=== PATIENT | male | born 1930 | race Caucasian/White ===

== ENCOUNTER 2016-05-08 11:02 | Emergency (ER) | payer OTHER, BC ==
[~2016-05-08] VITALS: Ht 167.6 cm; Wt 94.0 kg
[~2016-05-08 11:02] MED LIST: ALBUTEROL2.5 MG/3 M IH; AMBIZINE25 MG PO; AMIODARONE HCL200 MG PO; ARICEPT10 MG PO; ASPIRIN325 MG PO; CALCITRIOL0.25 MCG PO; CLINDAMYCIN HC300 MG PO; CYMBALTA20 MG PO; DILAUDID2 MG PO; FLOMAX0.4 MG PO; IMODIUM MS REL1 EACH PO; K-DUR20 MEQ PO; LASIX20 MG PO; LEVOFLOXACIN500 MG PO; LYRICA50 MG PO; MELATONIN10 M2 PO; METOPROLOL SUCC25 MG PO; METOPROLOL TART25 MG PO; PREDNISONE5 MG PO; PREDNISONE50 MG PO; PRINIVIL5 MG PO; SLEEP-AID25 MG PO; SPIRIVA RESPIMAT4 GM IH; TYLENOL EXTRA500 MG PO; VALIUM5 MG PO; VENTOLIN HFA18 GM IH; VITAMIN D2000 UNIT PO; XARELTO15 MG PO; ZOFRAN ODT8 MG PO; ZOFRAN4 MG PO
[2016-05-08 14:21] VITALS: BP 131/61
== END 2016-05-08 14:21 | disposition home or self-care (01) ==
LOC: EME 11:02
DX: Z03.89 Encounter for observation for other suspected diseases and conditions ruled out (principal); W18.39XA Other fall on same level, initial encounter; M54.9 Dorsalgia, unspecified; G89.29 Other chronic pain; Z95.0 Presence of cardiac pacemaker; Z79.01 Long term (current) use of anticoagulants; Z87.891 Personal history of nicotine dependence
CPT/HCPCS: 70450; 93005; 99281; 99284

== ENCOUNTER 2016-08-17 09:59 | Inpatient (IN) | payer OTHER, BC ==
[~2016-08-17] VITALS: Ht 167.6 cm; Wt 89.9 kg
[2016-08-17 10:58] LABS: BASOPHIL COUNT 0.1 K/uL (0-0.1); EOSINOPHIL (%) 2.8 % (0-5); EOSINOPHIL COUNT 0.3 K/uL (0-0.3); HEMATOCRIT 44.5 % (38.0-50.0); IMMATURE GRANULOCYTE COUNT 0.1 K/uL; INSTRUMENT ABS NEUTROPHIL CT 6.2 K/uL; LYMPHOCYTE COUNT 1.3 K/uL (1.0-2.8); MCH 31.3 PG (29.0-34.0); MCHC 31.7 G/DL (30.0-36.0); MCV 98.9 FL (86-99); MEAN PLAT.VOLUME 10.9 uM^3 (9.0-12.4); MONOCYTE COUNT 1.2 K/uL (0-0.8); NEUTROPHIL (%) 68.1 % (45-76); NEUTROPHIL COUNT 6.2 K/uL (1.8-6.4); PLATELET COUNT 178 K/uL (156-360); RBC DIS.WIDTH-CV 14.8 % (11.8-14.6); RBC DIS.WIDTH-SD 53.2 % (39-53); WHITE BLOOD COUNT 9.1 K/uL (4.1-10.2)
[2016-08-17 11:06] LABS: CHLORIDE 108 mEq/L (99-109); POTASSIUM 4.5 mEq/L (3.7-5.4); SODIUM 140 mEq/L (136-147)
[2016-08-17 11:07] LABS: INTER. NORMALIZED RATIO 2.3; PROTHROMBIN TIME 23.9 (9.2-11.2); PTT 37.8 (25-32)
[2016-08-17 11:08] LABS: GLUCOSE 98 mg/dL (70-99)
[2016-08-17 11:10] LABS: ANION GAP 8 MEQ/L (2-14)
[2016-08-17 11:12] LABS: GFR ESTIMATE (CALCULATED) 34 mL/min/
[2016-08-17 11:13] LABS: UREA NITROGEN (BUN) 35 mg/dL (9-23)
[2016-08-17 11:18] LABS: TROP-I INTERPRETATION NEGATIVE; TROPONIN-I 0.04 ng/mL (0.0-0.30)
[2016-08-17] MEDS ORDERED: MACULAR VITAMI1 EACH PO (13:35)
[2016-08-17] MEDS ORDERED: COUMADIN2.5 MG PO (13:37)
[2016-08-17] MEDS ORDERED: PROVENTIL,2.5 MG/3 M IH (13:39)
[2016-08-17 22:43] VITALS: BP 134/92
[2016-08-18 04:06] VITALS: BP 112/59
[2016-08-18 09:00] VITALS: BP 125/77
[2016-08-18 09:21] LABS: HEMATOCRIT 44.1 % (38.0-50.0); MCH 31.9 PG (29.0-34.0); MCHC 32.9 G/DL (30.0-36.0); MCV 96.9 FL (86-99); MEAN PLAT.VOLUME 11.7 uM^3 (9.0-12.4); PLATELET COUNT 173 K/uL (156-360); RBC DIS.WIDTH-CV 14.7 % (11.8-14.6); RBC DIS.WIDTH-SD 52.9 % (39-53); RED BLOOD COUNT 4.55 M/uL (4.00-5.50); WHITE BLOOD COUNT 13.6 K/uL (4.1-10.2)
[2016-08-18 09:27] LABS: CHLORIDE 107 mEq/L (99-109); INTER. NORMALIZED RATIO 2.2; POTASSIUM 4.2 mEq/L (3.7-5.4); PROTHROMBIN TIME 22.5 (9.2-11.2); SODIUM 142 mEq/L (136-147)
[2016-08-18 09:29] LABS: GLUCOSE 135 mg/dL (70-99)
[2016-08-18 09:30] LABS: ANION GAP 13 MEQ/L (2-14)
[2016-08-18 09:33] LABS: GFR ESTIMATE (CALCULATED) 30 mL/min/; UREA NITROGEN (BUN) 42 mg/dL (9-23)
[2016-08-18 11:34] VITALS: BP 130/72
[2016-08-18 14:30] VITALS: BP 110/62
[2016-08-18 19:26] VITALS: BP 98/53
[2016-08-19] VITALS (7 sets, daily range): BP systolic 72–115; BP diastolic 52–80
[2016-08-19 06:11] LABS: ANION GAP 14 MEQ/L (2-14); CHLORIDE 98 MEQ/L (99-109); GFR ESTIMATE (CALCULATED) 26 mL/min/; POTASSIUM 3.8 MEQ/L (3.7-5.4); SAMPLE HEMOLYSIS CHECK 0; SAMPLE ICTERIC CHECK 0; SAMPLE LIPEMIA CHECK 0; SODIUM 141 MEQ/L (136-147); UREA NITROGEN (BUN) 53 mg/dL (9-23)
[2016-08-19 06:13] LABS: GLUCOSE 95 mg/dL (70-99)
[2016-08-19 06:41] LABS: INTER. NORMALIZED RATIO 2.2; PROTHROMBIN TIME 23.4 (9.2-11.2)
[2016-08-19 14:49] LABS: ANION GAP 15 MEQ/L (2-14); CHLORIDE 98 MEQ/L (99-109); GFR ESTIMATE (CALCULATED) 25 mL/min/; GLUCOSE 125 mg/dL (70-99); POTASSIUM 4.4 MEQ/L (3.7-5.4); SAMPLE HEMOLYSIS CHECK 1; SAMPLE ICTERIC CHECK 0; SAMPLE LIPEMIA CHECK 0; SODIUM 137 MEQ/L (136-147); UREA NITROGEN (BUN) 58 mg/dL (9-23)
[2016-08-20 00:02] VITALS: BP 98/69
[2016-08-20 03:17] LABS: ADD MIUA? NO; BILIRUBIN NEGATIVE; BLOOD NEGATIVE; COLOR STRAW ((YELLOW)); GLUCOSE (STRIP) NEGATIVE; KETONES NEGATIVE; LEUKOCYTES NEGATIVE; NITRITE NEGATIVE; PROTEIN (STRIP) NEGATIVE; SPECIFIC GRAVITY 1.006 (1.000-1.030); UROBILINOGEN 0.2 MG/DL (0.2-1.0)
[2016-08-20 04:28] VITALS: BP 99/61
[2016-08-20 05:26] LABS: HEMATOCRIT 47.3 % (38.0-50.0); MCH 32.4 PG (29.0-34.0); MCHC 32.8 G/DL (30.0-36.0); MEAN PLAT.VOLUME 11.6 uM^3 (9.0-12.4); PLATELET COUNT 211 K/uL (156-360); RBC DIS.WIDTH-CV 14.6 % (11.8-14.6); RBC DIS.WIDTH-SD 53.4 % (39-53); RED BLOOD COUNT 4.78 M/uL (4.00-5.50); WHITE BLOOD COUNT 9.7 K/uL (4.1-10.2)
[2016-08-20 05:35] LABS: INTER. NORMALIZED RATIO 2.3
[2016-08-20 05:53] LABS: ANION GAP 14 MEQ/L (2-14); CHLORIDE 97 MEQ/L (99-109); GFR ESTIMATE (CALCULATED) 25 mL/min/; GLUCOSE 114 mg/dL (70-99); POTASSIUM 3.8 MEQ/L (3.7-5.4); SAMPLE HEMOLYSIS CHECK 0; SAMPLE ICTERIC CHECK 0; SAMPLE LIPEMIA CHECK 0; SODIUM 137 MEQ/L (136-147); UREA NITROGEN (BUN) 66 mg/dL (9-23)
[2016-08-20 07:33] VITALS: BP 103/70
[2016-08-20] MEDS ORDERED: ASPIR-LOW81 MG PO (10:34)
[2016-08-20] MEDS ORDERED: ENALAPRIL MALE2.5 MG PO (10:35)
[2016-08-20] MEDS ORDERED: METOPROLOL SUCC25 MG PO (10:35)
[2016-08-20] MEDS ORDERED: COUMADIN2.5 MG PO (12:08)
[2016-08-20 14:35] VITALS: BP 104/60
== END 2016-08-20 14:36 | disposition home or self-care (01) | DRG 292 ==
LOC: EME → EDBD 09:59 → 4EAST 14:47 → EDOF 14:47 → 4EAST 22:27
PROVIDERS: Emergency Medicine; Hospitalist; Internal Medicine; Internal Medicine Cardiovascular Disease
DX: I50.23 Acute on chronic systolic (congestive) heart failure (principal); J44.1 Chronic obstructive pulmonary disease with (acute) exacerbation; R09.02 Hypoxemia; I27.2 Other secondary pulmonary hypertension; N18.4 Chronic kidney disease, stage 4 (severe); I13.0 Hypertensive heart and chronic kidney disease with heart failure and stage 1 through stage 4 chronic kidney disease, or unspecified chronic kidney disease; I25.10 Atherosclerotic heart disease of native coronary artery without angina pectoris; G30.9 Alzheimer's disease, unspecified; I48.91 Unspecified atrial fibrillation; I08.3 Combined rheumatic disorders of mitral, aortic and tricuspid valves; K21.9 Gastro-esophageal reflux disease without esophagitis; F02.80 Dementia in other diseases classified elsewhere, unspecified severity, without behavioral disturbance, psychotic disturbance, mood disturbance, and anxiety; T50.1X5A Adverse effect of loop [high-ceiling] diuretics, initial encounter; N40.0 Benign prostatic hyperplasia without lower urinary tract symptoms; Z95.0 Presence of cardiac pacemaker; Z87.891 Personal history of nicotine dependence; Z82.3 Family history of stroke; Z79.899 Other long term (current) drug therapy; Z79.82 Long term (current) use of aspirin; Z79.01 Long term (current) use of anticoagulants; Z68.31 Body mass index [BMI] 31.0-31.9, adult; Z96.651 Presence of right artificial knee joint
CPT/HCPCS: 71010; 80048; 80048 91; 81003; 83880; 84484; 85025; 85027; 85610; 85730; 93005; 94640; 99281; 99285; J1940; J2930

== ENCOUNTER 2016-10-29 18:04 | Emergency (ER) | payer OTHER, BC ==
[~2016-10-29] VITALS: Ht 167.6 cm; Wt 91.0 kg
[~2016-10-29 18:04] MED LIST changes: +ASPIR-LOW81 MG PO; +COUMADIN2.5 MG PO; +ENALAPRIL MALE2.5 MG PO; +MACULAR VITAMI1 EACH PO; +PROVENTIL,2.5 MG/3 M IH
[2016-10-29 19:56] LABS: HEMATOCRIT 42.7 % (38.0-50.0); MCH 31.7 PG (29.0-34.0); MCHC 32.3 G/DL (30.0-36.0); MCV 97.9 FL (86-99); MEAN PLAT.VOLUME 11.4 uM^3 (9.0-12.4); PLATELET COUNT 144 K/uL (156-360); RBC DIS.WIDTH-CV 13.2 % (11.8-14.6); RBC DIS.WIDTH-SD 47.9 % (39-53); RED BLOOD COUNT 4.36 M/uL (4.00-5.50); WHITE BLOOD COUNT 7.7 K/uL (4.1-10.2)
[2016-10-29 20:09] LABS: CHLORIDE 105 mEq/L (99-109); POTASSIUM 5.3 mEq/L (3.7-5.4); SODIUM 137 mEq/L (136-147)
[2016-10-29 20:12] LABS: GLUCOSE 87 mg/dL (70-99)
[2016-10-29 20:13] LABS: ANION GAP 9 MEQ/L (2-14)
[2016-10-29 20:15] LABS: ALKALINE PHOSPHATASE 89 IU/L (3-129); GFR ESTIMATE (CALCULATED) 30 mL/min/
[2016-10-29 20:16] LABS: UREA NITROGEN (BUN) 36 mg/dL (9-23)
[2016-10-29 22:00] VITALS: BP 120/61
== END 2016-10-29 22:02 | disposition home or self-care (01) ==
LOC: EME 18:04
DX: I12.9 Hypertensive chronic kidney disease with stage 1 through stage 4 chronic kidney disease, or unspecified chronic kidney disease (principal); N18.4 Chronic kidney disease, stage 4 (severe); E86.0 Dehydration; F03.90 Unspecified dementia, unspecified severity, without behavioral disturbance, psychotic disturbance, mood disturbance, and anxiety; Z95.0 Presence of cardiac pacemaker; Z87.891 Personal history of nicotine dependence
CPT/HCPCS: 80053; 85027; 93005; 99281; 99284; J7030

== ENCOUNTER 2017-01-20 22:48 | Inpatient (IN) | payer OTHER, BC ==
[~2017-01-20] VITALS: Ht 167.6 cm; Wt 88.9 kg
[~2017-01-20 22:48] MED LIST changes: -CALCITRIOL0.25 MCG PO; -LYRICA50 MG PO; -MACULAR VITAMI1 EACH PO; -PROVENTIL,2.5 MG/3 M IH; -VITAMIN D2000 UNIT PO
[2017-01-20 23:22] LABS: HEMATOCRIT 43.9 % (38.0-50.0); MCH 30.9 PG (29.0-34.0); MCHC 31.9 G/DL (30.0-36.0); MCV 96.9 FL (86-99); MEAN PLAT.VOLUME 10.9 uM^3 (9.0-12.4); PLATELET COUNT 167 K/uL (156-360); RBC DIS.WIDTH-CV 13.9 % (11.8-14.6); RBC DIS.WIDTH-SD 49.7 % (39-53); RED BLOOD COUNT 4.53 M/uL (4.00-5.50); WHITE BLOOD COUNT 8.8 K/uL (4.1-10.2)
[2017-01-20 23:28] LABS: CHLORIDE 107 mEq/L (99-109); POTASSIUM 4.6 mEq/L (3.7-5.4); SODIUM 141 mEq/L (136-147)
[2017-01-20 23:30] LABS: GLUCOSE 107 mg/dL (70-99)
[2017-01-20 23:31] LABS: ANION GAP 12 MEQ/L (2-14)
[2017-01-20 23:34] LABS: GFR ESTIMATE (CALCULATED) 27 mL/min/
[2017-01-20 23:35] LABS: UREA NITROGEN (BUN) 35 mg/dL (9-23)
[2017-01-21 00:08] LABS: TOTAL BILIRUBIN 0.7 mg/dL (0.0-1.0)
[2017-01-21 00:09] LABS: ALKALINE PHOSPHATASE 93 IU/L (3-129)
[2017-01-21 00:11] LABS: DIRECT BILIRUBIN 0.2 mg/dL (0.0-0.3)
[2017-01-21 00:12] LABS: LIPASE 50 U/L (1.0-51.0)
[2017-01-21 00:14] LABS: TROP-I INTERPRETATION NEGATIVE; TROPONIN-I 0.02 ng/mL (0.0-0.30)
[2017-01-21 00:19] LABS: PTT 57.5 SEC (25-37)
[2017-01-21 00:21] LABS: INTER. NORMALIZED RATIO 4.3; PROTHROMBIN TIME 48.7 SEC (10.2-12.9)
[2017-01-21 01:00] LABS: ADD MIUA? NO; BILIRUBIN NEGATIVE; BLOOD NEGATIVE; COLOR YELLOW ((YELLOW)); GLUCOSE (STRIP) NEGATIVE; KETONES NEGATIVE; LEUKOCYTES NEGATIVE; NITRITE NEGATIVE; PROTEIN (STRIP) NEGATIVE; SPECIFIC GRAVITY 1.011 (1.000-1.030); UCUL ADDED? NO; UROBILINOGEN 0.2 MG/DL (0.2-1.0)
[2017-01-21 05:46] VITALS: BP 132/72
[2017-01-21 07:23] LABS: INTER. NORMALIZED RATIO 4.4; PROTHROMBIN TIME 50.6 SEC (10.2-12.9)
[2017-01-21 07:46] VITALS: BP 117/74
[2017-01-21] MEDS ORDERED: MACULAR VITAMI1 EACH PO ×2 (10:44→10:46)
[2017-01-21] MEDS ORDERED: VITAMIN D2000 UNIT PO (10:44)
[2017-01-21] MEDS ORDERED: DILAUDID2 MG PO (10:44)
[2017-01-21] MEDS ORDERED: PROVENTIL,2.5 MG/3 M IH (10:44)
[2017-01-21] MEDS ORDERED: CALCITRIOL0.25 MCG PO (10:44)
[2017-01-21] MEDS ORDERED: LYRICA50 MG PO ×2 (10:44→10:46)
[2017-01-21] MEDS ORDERED: METOPROLOL TART25 MG PO (10:47)
[2017-01-21] MEDS ORDERED: WARFARIN SODIU2.5 MG PO ×2 (10:47→10:48)
[2017-01-21 11:35] VITALS: BP 117/63
[2017-01-21 19:00] VITALS: BP 115/82
[2017-01-21 21:10] LABS: POINT-OF-CARE METER ID UU14174216
[2017-01-22 00:03] VITALS: BP 110/55
[2017-01-22 04:00] VITALS: BP 130/75
[2017-01-22 06:10] LABS: INTER. NORMALIZED RATIO 3.9; PROTHROMBIN TIME 44.8 SEC (10.2-12.9)
[2017-01-22 08:00] VITALS: BP 89/54
[2017-01-22 11:42] VITALS: BP 113/66
[2017-01-22] MEDS ORDERED: FUROSEMIDE40 MG PO (14:33)
== END 2017-01-22 16:18 | disposition home health service (06) | DRG 291 ==
LOC: EME 22:48 → EDOF 01-21 01:51 → 4EAST 01-21 01:51 → ENRESERV 01-21 01:53 → 4EAST 01-21 05:41
PROVIDERS: Emergency Medicine; Internal Medicine
DX: I13.0 Hypertensive heart and chronic kidney disease with heart failure and stage 1 through stage 4 chronic kidney disease, or unspecified chronic kidney disease (principal); I50.43 Acute on chronic combined systolic (congestive) and diastolic (congestive) heart failure; N18.4 Chronic kidney disease, stage 4 (severe); J44.9 Chronic obstructive pulmonary disease, unspecified; I27.20 Pulmonary hypertension, unspecified; I42.9 Cardiomyopathy, unspecified; I08.0 Rheumatic disorders of both mitral and aortic valves; F03.90 Unspecified dementia, unspecified severity, without behavioral disturbance, psychotic disturbance, mood disturbance, and anxiety; I25.10 Atherosclerotic heart disease of native coronary artery without angina pectoris; N40.1 Benign prostatic hyperplasia with lower urinary tract symptoms; R33.8 Other retention of urine; M19.90 Unspecified osteoarthritis, unspecified site; R09.02 Hypoxemia; I44.7 Left bundle-branch block, unspecified; F41.9 Anxiety disorder, unspecified; F32.9 Major depressive disorder, single episode, unspecified; Z87.891 Personal history of nicotine dependence; Z95.0 Presence of cardiac pacemaker; Z96.89 Presence of other specified functional implants; Z96.651 Presence of right artificial knee joint; Z79.01 Long term (current) use of anticoagulants; Z88.0 Allergy status to penicillin
CPT/HCPCS: 71020; 80048; 80076; 81003; 82948; 83690; 83880; 84484; 85027; 85610; 85730; 93005; 94640; 94799; 99202; 99281; 99285; J1940

== ENCOUNTER 2017-02-28 11:30 | Emergency (ER) | payer OTHER, BC ==
[~2017-02-28] VITALS: Ht 45.7 cm; Wt 89.1 kg
[~2017-02-28 11:30] MED LIST changes: +CALCITRIOL0.25 MCG PO; +FUROSEMIDE40 MG PO; +LYRICA50 MG PO; +MACULAR VITAMI1 EACH PO; +PROVENTIL,2.5 MG/3 M IH; +VITAMIN D2000 UNIT PO; +WARFARIN SODIU2.5 MG PO
[2017-02-28 12:35] LABS: BASOPHIL COUNT 0.1 K/uL (0-0.1); EOSINOPHIL (%) 4.4 % (0-5); EOSINOPHIL COUNT 0.4 K/uL (0-0.3); HEMATOCRIT 43.1 % (38.0-50.0); IMMATURE GRANULOCYTE (%) 1.3 % (0.0-0.7); IMMATURE GRANULOCYTE COUNT 0.1 K/uL; INSTRUMENT ABS NEUTROPHIL CT 5.2 K/uL; LYMPHOCYTE COUNT 1.2 K/uL (1.0-2.8); MCH 30.9 PG (29.0-34.0); MCHC 32.5 G/DL (30.0-36.0); MCV 95.1 FL (86-99); MEAN PLAT.VOLUME 11.4 uM^3 (9.0-12.4); MONOCYTE (%) 13.3 % (3-12); MONOCYTE COUNT 1.1 K/uL (0-0.8); NEUTROPHIL (%) 65.3 % (45-76); NEUTROPHIL COUNT 5.2 K/uL (1.8-6.4); PLATELET COUNT 144 K/uL (156-360); RBC DIS.WIDTH-SD 48.8 % (39-53); RED BLOOD COUNT 4.53 M/uL (4.00-5.50); WHITE BLOOD COUNT 7.9 K/uL (4.1-10.2)
[2017-02-28 12:42] LABS: PROTHROMBIN TIME 45.3 SEC (10.2-12.9)
[2017-02-28 12:45] LABS: PTT 51.2 SEC (25-37)
[2017-02-28 12:47] LABS: CHLORIDE 108 mEq/L (99-109); MAGNESIUM 2.1 mg/dL (1.3-2.7); POTASSIUM 4.2 mEq/L (3.7-5.4); SODIUM 143 mEq/L (136-147)
[2017-02-28 12:49] LABS: GLUCOSE 100 mg/dL (70-99)
[2017-02-28 12:50] LABS: ANION GAP 11 MEQ/L (2-14)
[2017-02-28 12:51] LABS: TOTAL BILIRUBIN 0.9 mg/dL (0.0-1.0)
[2017-02-28 12:53] LABS: ALKALINE PHOSPHATASE 85 IU/L (3-129); GFR ESTIMATE (CALCULATED) 30 mL/min/ (58.99-99999)
[2017-02-28 12:54] LABS: UREA NITROGEN (BUN) 44 mg/dL (9-23)
[2017-02-28 12:55] LABS: TROP-I INTERPRETATION NEGATIVE; TROPONIN-I 0.03 ng/mL (0.0-0.30)
[2017-02-28 12:56] LABS: CREATINE KINASE 69 IU/L (1-294); TOTAL CK 69 IU/L (1-294)
[2017-02-28 13:03] LABS: CK-MB 3.1 ng/mL (0.0-4.9)
[2017-02-28 13:13] LABS: ADD MIUA? NO; BILIRUBIN NEGATIVE; BLOOD NEGATIVE; COLOR YELLOW ((YELLOW)); GLUCOSE (STRIP) NEGATIVE; KETONES NEGATIVE; LEUKOCYTES NEGATIVE; NITRITE NEGATIVE; PROTEIN (STRIP) NEGATIVE; SPECIFIC GRAVITY 1.008 (1.000-1.030); UCUL ADDED? NO; UROBILINOGEN 0.2 MG/DL (0.2-1.0)
[2017-02-28] MEDS ORDERED: MACULAR VITAMI1 EACH PO (13:55)
[2017-02-28 16:09] LABS: TROP-I INTERPRETATION NEGATIVE; TROPONIN-I 0.03 ng/mL (0.0-0.30)
[2017-02-28 17:12] VITALS: BP 106/72
== END 2017-02-28 17:13 | disposition home or self-care (01) ==
LOC: EME 11:30
PROVIDERS: Emergency Medicine
DX: R55 Syncope and collapse (principal); I95.9 Hypotension, unspecified; R09.02 Hypoxemia; I13.0 Hypertensive heart and chronic kidney disease with heart failure and stage 1 through stage 4 chronic kidney disease, or unspecified chronic kidney disease; I50.22 Chronic systolic (congestive) heart failure; N18.4 Chronic kidney disease, stage 4 (severe); F03.90 Unspecified dementia, unspecified severity, without behavioral disturbance, psychotic disturbance, mood disturbance, and anxiety; J44.9 Chronic obstructive pulmonary disease, unspecified; F41.9 Anxiety disorder, unspecified; F32.9 Major depressive disorder, single episode, unspecified; Z95.0 Presence of cardiac pacemaker; Z79.01 Long term (current) use of anticoagulants; Z87.891 Personal history of nicotine dependence; Z88.2 Allergy status to sulfonamides; Z88.0 Allergy status to penicillin
CPT/HCPCS: 36600; 71010; 80053; 81003; 82550; 82553; 82803; 83605; 83735; 83880; 84484; 85025; 85610; 85730; 93005; 94640; 99281; 99285; J7030; J7040

== ENCOUNTER 2017-06-17 09:56 | Inpatient (IN) | payer OTHER ==
[~2017-06-17] VITALS: Ht 167.6 cm; Wt 89.9 kg
[2017-06-17 10:44] LABS: HEMATOCRIT 44.6 % (38.0-50.0); HEMOGLOBIN 14.3 G/DL (12.5-16.6); MCH 30.3 PG (29.0-34.0); MCHC 32.1 G/DL (30.0-36.0); MCV 94.5 FL (86-99); PLATELET COUNT 162 K/uL (156-360); RBC DIS.WIDTH-CV 14.7 % (11.8-14.6); RBC DIS.WIDTH-SD 50.6 % (39-53); RED BLOOD COUNT 4.72 M/uL (4.00-5.50); WHITE BLOOD COUNT 11.3 K/uL (4.1-10.2)
[2017-06-17 11:04] LABS: TROP-I INTERPRETATION NEGATIVE; TROPONIN-I 0.06 ng/mL (0.0-0.30)
[2017-06-17 12:10] LABS: ALBUMIN 3.8 g/dL (3.2-4.8); CHLORIDE 104 mEq/L (99-109); POTASSIUM 4.7 mEq/L (3.7-5.4); SODIUM 143 mEq/L (136-147)
[2017-06-17 12:13] LABS: GLUCOSE 106 mg/dL (70-99); TOTAL PROTEIN 5.8 g/dL (6.4-8.3)
[2017-06-17 12:15] LABS: TOTAL BILIRUBIN 1.7 mg/dL (0.0-1.0)
[2017-06-17 12:16] LABS: ALKALINE PHOSPHATASE 97 IU/L (3-129); CREATININE 2.4 mg/dL (0.6-1.3); GFR ESTIMATE (CALCULATED) 27 mL/min/ (58.99-99999)
[2017-06-17 12:17] LABS: UREA NITROGEN (BUN) 41 mg/dL (9-23)
[2017-06-17 12:18] LABS: AST (GOT) 14 IU/L (2-34)
[2017-06-17 12:19] LABS: ALT (GPT) 16 IU/L (3-49)
[2017-06-17 12:50] LABS: APPEARANCE CLEAR ((CLEAR)); BILIRUBIN NEGATIVE; BLOOD NEGATIVE; COLOR YELLOW ((YELLOW)); GLUCOSE (STRIP) NEGATIVE; KETONES 5; LEUKOCYTES NEGATIVE; NITRITE NEGATIVE; PROTEIN (STRIP) NEGATIVE; SPECIFIC GRAVITY 1.019 (1.000-1.030); UCUL ADDED? NO
[2017-06-17 13:21] LABS: C-REACTIVE PROTEIN 20.3 MG/L (0-10)
[2017-06-17] MEDS ORDERED: ROCALTROL0.25 MCG PO ×2 (16:05)
[2017-06-17] MEDS ORDERED: COUMADIN2.5 MG PO (16:08)
[2017-06-17] MEDS ORDERED: LASIX40 MG PO (16:30)
[2017-06-17] MEDS ORDERED: LYRICA50 MG PO (16:31)
[2017-06-17 17:09] LABS: BASE EXCESS -0.7 mEq/L (-3 to +3); BICARBONATE 24.2 mEq/L (22-26); CARBOXY HGB 2.4 % (0-5); COMMENTS - BLOOD GASES A+C+; DEVICE NC; O2 FLOW 3 L/MIN; PCO2 40 mm Hg (35-45); PO2 80 mm Hg (80-100); SITE RR; pH 7.39 (7.35-7.45)
[2017-06-17 17:37] LABS: HDL CHOLESTEROL 24 MG/DL (Desirable>=40); LDL CHOLESTEROL 75 mg/dL (Desirable<100); NON-HDL CHOLESTEROL 92 mg/dL (Desirable<160); TOTAL CHOLESTEROL 116 mg/dL (Desirable<200); TRIGLYCERIDES 87 MG/DL (Normal: <150)
[2017-06-17 18:51] VITALS: BP 124/85
[2017-06-17 20:02] VITALS: BP 120/84
[2017-06-17 20:44] LABS: TROP-I INTERPRETATION NEGATIVE; TROPONIN-I 0.07 ng/mL (0.0-0.30)
[2017-06-18] VITALS (7 sets, daily range): BP systolic 106–132; BP diastolic 58–83
[2017-06-18 02:32] LABS: TROP-I INTERPRETATION NEGATIVE; TROPONIN-I 0.06 ng/mL (0.0-0.30)
[2017-06-19 07:52] VITALS: BP 131/57
[2017-06-19 11:37] LABS: CHLORIDE 100 MEQ/L (99-109); CREATININE 2.2 MG/DL (0.6-1.3); GFR ESTIMATE (CALCULATED) 30 mL/min/ (58.99-99999); POTASSIUM 4.4 MEQ/L (3.7-5.4); UREA NITROGEN (BUN) 56 mg/dL (9-23)
[2017-06-19 11:42] LABS: GLUCOSE 229 mg/dL (70-99); SODIUM 134 MEQ/L (136-147)
[2017-06-19 11:43] LABS: FOLIC ACID (FOLATE) 6.3 NG/ML (5.0-22.0)
[2017-06-19 16:07] VITALS: BP 113/77
[2017-06-20 00:09] VITALS: BP 116/78
[2017-06-20 06:58] LABS: BASOPHIL (%) 0.1 % (0-1); EOSINOPHIL (%) 0 % (0-5); HEMATOCRIT 42.6 % (38.0-50.0); IMMATURE GRANULOCYTE (%) 0.8 % (0.0-0.7); LYMPHOCYTE (%) 2.7 % (15-42); LYMPHOCYTE COUNT 0.4 K/uL (1.0-2.8); MCH 30.4 PG (29.0-34.0); MCHC 32.9 G/DL (30.0-36.0); MCV 92.6 FL (86-99); MONOCYTE (%) 4.7 % (3-12); MONOCYTE COUNT 0.7 K/uL (0-0.8); NEUTROPHIL (%) 91.7 % (45-76); NEUTROPHIL COUNT 13.1 K/uL (1.8-6.4); PLATELET COUNT 147 K/uL (156-360); RBC DIS.WIDTH-CV 14.6 % (11.8-14.6); RBC DIS.WIDTH-SD 49.7 % (39-53); WHITE BLOOD COUNT 14.3 K/uL (4.1-10.2)
[2017-06-20 07:19] LABS: ALBUMIN 3.6 G/DL (3.2-4.8); ALKALINE PHOSPHATASE 67 IU/L (3-129); ALT (GPT) 29 IU/L (3-49); AST (GOT) 33 IU/L (2-34); CHLORIDE 100 MEQ/L (99-109); CREATININE 2.2 MG/DL (0.6-1.3); GFR ESTIMATE (CALCULATED) 30 mL/min/ (58.99-99999); GLUCOSE 129 mg/dL (70-99); POTASSIUM 4.9 MEQ/L (3.7-5.4); SODIUM 133 MEQ/L (136-147); TOTAL BILIRUBIN 1.2 MG/DL (0.0-1.0); TOTAL PROTEIN 5.9 G/DL (6.4-8.3); UREA NITROGEN (BUN) 65 mg/dL (9-23)
[2017-06-20 07:33] VITALS: BP 118/69
[2017-06-20 15:49] VITALS: BP 115/66
[2017-06-21] VITALS: BP 102/66
[2017-06-21 06:43] LABS: BASOPHIL (%) 0.1 % (0-1); EOSINOPHIL (%) 0 % (0-5); HEMATOCRIT 42.7 % (38.0-50.0); HEMOGLOBIN 13.6 G/DL (12.5-16.6); IMMATURE GRANULOCYTE (%) 0.8 % (0.0-0.7); LYMPHOCYTE (%) 5.4 % (15-42); LYMPHOCYTE COUNT 0.6 K/uL (1.0-2.8); MCH 29.2 PG (29.0-34.0); MCHC 31.9 G/DL (30.0-36.0); MCV 91.8 FL (86-99); MONOCYTE (%) 6.4 % (3-12); MONOCYTE COUNT 0.7 K/uL (0-0.8); NEUTROPHIL (%) 87.3 % (45-76); NEUTROPHIL COUNT 9.9 K/uL (1.8-6.4); PLATELET COUNT 152 K/uL (156-360); RBC DIS.WIDTH-CV 14.6 % (11.8-14.6); RBC DIS.WIDTH-SD 48.9 % (39-53); RED BLOOD COUNT 4.65 M/uL (4.00-5.50); WHITE BLOOD COUNT 11.4 K/uL (4.1-10.2)
[2017-06-21 07:04] LABS: CHLORIDE 100 MEQ/L (99-109); CREATININE 2.3 MG/DL (0.6-1.3); GFR ESTIMATE (CALCULATED) 29 mL/min/ (58.99-99999); GLUCOSE 125 mg/dL (70-99); POTASSIUM 5.1 MEQ/L (3.7-5.4); SODIUM 132 MEQ/L (136-147); UREA NITROGEN (BUN) 73 mg/dL (9-23)
[2017-06-21 07:37] VITALS: BP 127/75
[2017-06-21 15:25] VITALS: BP 138/74
[2017-06-21 21:07] VITALS: BP 107/69
[2017-06-22 02:00] VITALS: BP 116/85
[2017-06-22 08:22] VITALS: BP 120/70
[2017-06-22 11:35] VITALS: BP 133/95
[2017-06-22 13:01] LABS: APPEARANCE CLEAR ((CLEAR)); BILIRUBIN NEGATIVE; BLOOD NEGATIVE; COLOR STRAW ((YELLOW)); GLUCOSE (STRIP) NEGATIVE; KETONES NEGATIVE; LEUKOCYTES NEGATIVE; NITRITE NEGATIVE; PROTEIN (STRIP) NEGATIVE; UCUL ADDED? NO; UROBILINOGEN 0.2 MG/DL (0.2-1.0)
[2017-06-22 16:00] VITALS: BP 135/95
[2017-06-22 23:56] VITALS: BP 137/77
[2017-06-23 06:36] LABS: BASOPHIL (%) 0.1 % (0-1); EOSINOPHIL (%) 0 % (0-5); HEMATOCRIT 45.7 % (38.0-50.0); HEMOGLOBIN 14.5 G/DL (12.5-16.6); IMMATURE GRANULOCYTE (%) 0.9 % (0.0-0.7); LYMPHOCYTE (%) 5.4 % (15-42); LYMPHOCYTE COUNT 0.8 K/uL (1.0-2.8); MCH 29.4 PG (29.0-34.0); MCHC 31.7 G/DL (30.0-36.0); MCV 92.7 FL (86-99); MONOCYTE (%) 7.7 % (3-12); MONOCYTE COUNT 1.1 K/uL (0-0.8); NEUTROPHIL (%) 85.9 % (45-76); NEUTROPHIL COUNT 12.4 K/uL (1.8-6.4); NRBC (%) 0.1 /100 WBC (0-0); PLATELET COUNT 154 K/uL (156-360); RBC DIS.WIDTH-CV 14.5 % (11.8-14.6); RBC DIS.WIDTH-SD 49.4 % (39-53); RED BLOOD COUNT 4.93 M/uL (4.00-5.50); WHITE BLOOD COUNT 14.5 K/uL (4.1-10.2)
[2017-06-23 07:07] LABS: CHLORIDE 105 MEQ/L (99-109); CREATININE 2.2 MG/DL (0.6-1.3); GFR ESTIMATE (CALCULATED) 30 mL/min/ (58.99-99999); GLUCOSE 107 mg/dL (70-99); POTASSIUM 4.8 MEQ/L (3.7-5.4); UREA NITROGEN (BUN) 71 mg/dL (9-23)
[2017-06-23 07:10] LABS: SODIUM 139 MEQ/L (136-147)
[2017-06-23 07:29] VITALS: BP 132/77
[2017-06-23 16:11] VITALS: BP 134/68
[2017-06-23 23:40] VITALS: BP 143/90
[2017-06-24 06:30] LABS: CHLORIDE 108 MEQ/L (99-109); CREATININE 2.1 MG/DL (0.6-1.3); GFR ESTIMATE (CALCULATED) 32 mL/min/ (58.99-99999); GLUCOSE 117 mg/dL (70-99); POTASSIUM 4.8 MEQ/L (3.7-5.4); SODIUM 139 MEQ/L (136-147); UREA NITROGEN (BUN) 72 mg/dL (9-23)
[2017-06-24 07:38] VITALS: BP 138/81
[2017-06-24 12:59] LABS: HEMATOCRIT 44.8 % (38.0-50.0); HEMOGLOBIN 14.6 G/DL (12.5-16.6); MCH 30.2 PG (29.0-34.0); MCHC 32.6 G/DL (30.0-36.0); MCV 92.6 FL (86-99); NRBC (%) 0.3 /100 WBC (0-0); PLATELET COUNT 149 K/uL (156-360); RBC DIS.WIDTH-CV 14.8 % (11.8-14.6); RBC DIS.WIDTH-SD 49.9 % (39-53); RED BLOOD COUNT 4.84 M/uL (4.00-5.50); WHITE BLOOD COUNT 17.6 K/uL (4.1-10.2)
[2017-06-24 15:54] VITALS: BP 119/88
[2017-06-25 04:56] VITALS: BP 138/92
[2017-06-25 07:05] VITALS: BP 133/90
[2017-06-25 11:15] VITALS: BP 151/98
[2017-06-25 11:36] LABS: BASE EXCESS -7.2 mEq/L (-3 to +3); BICARBONATE 17.1 mEq/L (22-26); CARBOXY HGB 2.2 % (0-5); COMMENTS - BLOOD GASES +C; DEVICE NC; MECHANICAL RATE 22 resp/min; METHEMOGLOBIN 1.5 % (0-1.5); O2 FLOW 2 L/MIN; PCO2 31 mm Hg (35-45); PO2 65 mm Hg (80-100); SITE LR +A; pH 7.35 (7.35-7.45)
[2017-06-25 11:54] LABS: HEMATOCRIT 45.4 % (38.0-50.0); HEMOGLOBIN 14.7 G/DL (12.5-16.6); MCH 30.2 PG (29.0-34.0); MCHC 32.4 G/DL (30.0-36.0); MCV 93.4 FL (86-99); NRBC (%) 0.2 /100 WBC (0-0); PLATELET COUNT 144 K/uL (156-360); RBC DIS.WIDTH-CV 14.8 % (11.8-14.6); RBC DIS.WIDTH-SD 51.4 % (39-53); RED BLOOD COUNT 4.86 M/uL (4.00-5.50); WHITE BLOOD COUNT 17.2 K/uL (4.1-10.2)
[2017-06-25 12:44] LABS: CHLORIDE 112 MEQ/L (99-109); GFR ESTIMATE (CALCULATED) 34 mL/min/ (58.99-99999); GLUCOSE 105 mg/dL (70-99); POTASSIUM 5.1 MEQ/L (3.7-5.4); UREA NITROGEN (BUN) 72 mg/dL (9-23)
[2017-06-25 12:56] LABS: SODIUM 146 MEQ/L (136-147)
[2017-06-25 13:29] LABS: APPEARANCE SL.HAZY ((CLEAR)); BILIRUBIN NEGATIVE; BLOOD SMALL; COLOR YELLOW ((YELLOW)); GLUCOSE (STRIP) NEGATIVE; KETONES NEGATIVE; LEUKOCYTES NEGATIVE; NITRITE NEGATIVE; PROTEIN (STRIP) 30; SPECIFIC GRAVITY 1.021 (1.000-1.030); UROBILINOGEN 0.2 MG/DL (0.2-1.0)
[2017-06-25 14:18] LABS: EPITHELIAL CELLS RARE /HPF; FINE GRANULAR CASTS RARE /LPF; MUCUS NONE SEEN /LPF; RED BLOOD CELLS RARE /HPF (0-5)
[2017-06-25 14:19] LABS: BACTERIA NONE SEEN /HPF; UCUL ADDED? NO; WHITE BLOOD CELLS RARE /HPF (0-5)
[2017-06-25 15:08] VITALS: BP 121/82
[2017-06-25 15:21] LABS: INTER. NORMALIZED RATIO 2.4
[2017-06-25 15:23] LABS: PTT 33.8 SEC (25-37)
[2017-06-25 19:25] VITALS: BP 124/89
[2017-06-26 00:13] VITALS: BP 128/79
[2017-06-26 04:11] VITALS: BP 124/88
[2017-06-26 06:46] LABS: BASOPHIL (%) 0.2 % (0-1); EOSINOPHIL (%) 0 % (0-5); HEMATOCRIT 46.4 % (38.0-50.0); HEMOGLOBIN 14.8 G/DL (12.5-16.6); IMMATURE GRANULOCYTE (%) 1.3 % (0.0-0.7); LYMPHOCYTE (%) 3.9 % (15-42); LYMPHOCYTE COUNT 0.7 K/uL (1.0-2.8); MCH 29.7 PG (29.0-34.0); MCHC 31.9 G/DL (30.0-36.0); MONOCYTE (%) 7.1 % (3-12); MONOCYTE COUNT 1.3 K/uL (0-0.8); NEUTROPHIL (%) 87.5 % (45-76); NEUTROPHIL COUNT 15.8 K/uL (1.8-6.4); NRBC (%) 0.2 /100 WBC (0-0); PLATELET COUNT 153 K/uL (156-360); RBC DIS.WIDTH-CV 14.8 % (11.8-14.6); RBC DIS.WIDTH-SD 50.4 % (39-53); RED BLOOD COUNT 4.99 M/uL (4.00-5.50)
[2017-06-26 06:55] LABS: INTER. NORMALIZED RATIO 2.6
[2017-06-26 07:11] LABS: CHLORIDE 111 MEQ/L (99-109); CREATININE 2.2 MG/DL (0.6-1.3); GFR ESTIMATE (CALCULATED) 30 mL/min/ (58.99-99999); GLUCOSE 125 mg/dL (70-99); POTASSIUM 4.9 MEQ/L (3.7-5.4); SODIUM 146 MEQ/L (136-147); UREA NITROGEN (BUN) 77 mg/dL (9-23)
[2017-06-26 08:15] VITALS: BP 131/86
[2017-06-26 16:55] VITALS: BP 151/85
[2017-06-27] VITALS: BP 135/81
[2017-06-27 08:19] VITALS: BP 135/87
[2017-06-27 10:18] LABS: HEMATOCRIT 46.1 % (38.0-50.0); MCH 30.1 PG (29.0-34.0); MCHC 32.5 G/DL (30.0-36.0); MCV 92.4 FL (86-99); NRBC (%) 0.1 /100 WBC (0-0); PLATELET COUNT 142 K/uL (156-360); RBC DIS.WIDTH-SD 50.9 % (39-53); RED BLOOD COUNT 4.99 M/uL (4.00-5.50); WHITE BLOOD COUNT 21.5 K/uL (4.1-10.2)
[2017-06-27 10:32] LABS: INTER. NORMALIZED RATIO 2.8
[2017-06-27 10:35] LABS: CHLORIDE 114 MEQ/L (99-109); CREATININE 2.1 MG/DL (0.6-1.3); GFR ESTIMATE (CALCULATED) 32 mL/min/ (58.99-99999); GLUCOSE 155 mg/dL (70-99); POTASSIUM 4.8 MEQ/L (3.7-5.4); SODIUM 146 MEQ/L (136-147); UREA NITROGEN (BUN) 81 mg/dL (9-23)
[2017-06-27 17:11] VITALS: BP 125/83
[2017-06-28 00:10] VITALS: BP 140/86
[2017-06-28 07:33] LABS: HEMATOCRIT 45.7 % (38.0-50.0); HEMOGLOBIN 15.2 G/DL (12.5-16.6); MCH 30.2 PG (29.0-34.0); MCHC 33.3 G/DL (30.0-36.0); MCV 90.9 FL (86-99); NRBC (%) 0.1 /100 WBC (0-0); RBC DIS.WIDTH-CV 15.1 % (11.8-14.6); RBC DIS.WIDTH-SD 49.3 % (39-53); RED BLOOD COUNT 5.03 M/uL (4.00-5.50); WHITE BLOOD COUNT 22.9 K/uL (4.1-10.2)
[2017-06-28 07:35] VITALS: BP 121/79
[2017-06-28 07:35] LABS: INTER. NORMALIZED RATIO 2.6
[2017-06-28 07:44] LABS: CHLORIDE 117 MEQ/L (99-109); POTASSIUM 4.6 MEQ/L (3.7-5.4); SODIUM 149 MEQ/L (136-147)
[2017-06-28 07:59] LABS: GFR ESTIMATE (CALCULATED) 34 mL/min/ (58.99-99999); UREA NITROGEN (BUN) 80 mg/dL (9-23)
[2017-06-28 08:00] LABS: GLUCOSE 113 mg/dL (70-99)
[2017-06-28 08:12] LABS: BASOPHIL (%) 0.3 % (0-1); BASOPHIL COUNT 0.1 K/uL (0-0.1); EOSINOPHIL (%) 0 % (0-5); LYMPHOCYTE (%) 2.4 % (15-42); LYMPHOCYTE COUNT 0.5 K/uL (1.0-2.8); MONOCYTE (%) 4.6 % (3-12); MONOCYTE COUNT 1.1 K/uL (0-0.8); NEUTROPHIL (%) 91.7 % (45-76); PLAT.SUFFICIENCY DECREASED; PLATELET COUNT 120 K/uL (156-360)
[2017-06-28 09:54] LABS: BASE EXCESS -4.2 mEq/L (-3 to +3); BICARBONATE 17.8 mEq/L (22-26); CARBOXY HGB 2.5 % (0-5); METHEMOGLOBIN 1.7 % (0-1.5)
[2017-06-28 09:55] LABS: COMMENTS - BLOOD GASES +C; FI02 21 %; PCO2 25 mm Hg (35-45); PO2 49 mm Hg (80-100); SITE RR +A; TOTAL RESP RATE 30 resp/min; pH 7.46 (7.35-7.45)
[2017-06-28 14:33] LABS: CHLORIDE 115 MEQ/L (99-109); CREATININE 2.1 MG/DL (0.6-1.3); GFR ESTIMATE (CALCULATED) 32 mL/min/ (58.99-99999); GLUCOSE 129 mg/dL (70-99); POTASSIUM 4.3 MEQ/L (3.7-5.4); SODIUM 148 MEQ/L (136-147); UREA NITROGEN (BUN) 83 mg/dL (9-23)
[2017-06-28 22:40] VITALS: BP 120/84
[2017-06-29 07:39] VITALS: BP 133/79
== END 2017-06-29 16:04 | disposition hospice, home (50) | DRG 190 ==
LOC: EME 09:56 → 5SOUTH 15:59 → EDOF 15:59 → ENRESERV 16:01 → 5SOUTH 18:04 → ENRESERV 06-25 11:18 → 5SOUTH 06-25 13:57 → ENPENDDIS 06-29 14:22 → 5SOUTH 06-29 16:04
PROVIDERS: Emergency Medicine; Hospitalist; Internal Medicine
DX: J44.1 Chronic obstructive pulmonary disease with (acute) exacerbation (principal); G93.40 Encephalopathy, unspecified; I50.22 Chronic systolic (congestive) heart failure; E87.1 Hypo-osmolality and hyponatremia; F05 Delirium due to known physiological condition; F33.9 Major depressive disorder, recurrent, unspecified; I42.9 Cardiomyopathy, unspecified; I13.0 Hypertensive heart and chronic kidney disease with heart failure and stage 1 through stage 4 chronic kidney disease, or unspecified chronic kidney disease; Z51.5 Encounter for palliative care; F02.81 Dementia in other diseases classified elsewhere, unspecified severity, with behavioral disturbance; N18.4 Chronic kidney disease, stage 4 (severe); I73.9 Peripheral vascular disease, unspecified; R29.6 Repeated falls; R04.0 Epistaxis; E86.0 Dehydration; G30.9 Alzheimer's disease, unspecified; G89.29 Other chronic pain; I34.2 Nonrheumatic mitral (valve) stenosis; I35.0 Nonrheumatic aortic (valve) stenosis; I27.20 Pulmonary hypertension, unspecified; I25.10 Atherosclerotic heart disease of native coronary artery without angina pectoris; I48.2 Chronic atrial fibrillation; Z96.652 Presence of left artificial knee joint; T38.0X5A Adverse effect of glucocorticoids and synthetic analogues, initial encounter; R27.8 Other lack of coordination; I34.0 Nonrheumatic mitral (valve) insufficiency; I36.1 Nonrheumatic tricuspid (valve) insufficiency; R45.1 Restlessness and agitation; G31.9 Degenerative disease of nervous system, unspecified; M54.9 Dorsalgia, unspecified; Z91.81 History of falling; Z95.0 Presence of cardiac pacemaker; Z86.73 Personal history of transient ischemic attack (TIA), and cerebral infarction without residual deficits; Z79.01 Long term (current) use of anticoagulants; Z87.891 Personal history of nicotine dependence; Z88.0 Allergy status to penicillin; Z88.2 Allergy status to sulfonamides; Z91.83 Wandering in diseases classified elsewhere; Z88.1 Allergy status to other antibiotic agents; Z79.51 Long term (current) use of inhaled steroids; Z82.3 Family history of stroke; Z80.49 Family history of malignant neoplasm of other genital organs
CPT/HCPCS: 36600; 70450; 71045; 71046; 72040; 74022; 80048; 80048 91; 80053; 80061; 81003; 82140; 82607; 82746; 82803; 82948; 84443; 84484; 85025; 85027; 85610; 85730; 86140; 87040; 93005; 93926; 94640; 94640 76; 94760; 94799; 95819; 97530 GO; 97530 GP; 99202; 99281; 99285; J1940; J2310; J2920; J2930; J7030; J7512